=== PATIENT | female | born 1970 | race Caucasian/White ===

== ENCOUNTER 2019-01-07 20:34 | Emergency (ER) | payer OTHER ==
[2019-01-07] MEDS: HYDROCODONE/APAP (5/325) TAB PO (21:50)
[2019-01-07] MEDS: KETOROLAC 60 MG INJ IM (21:52)
== END 2019-01-07 23:30 | disposition home or self-care (01) ==
LOC: FTE 20:34
DX: M25.561 Pain in right knee (principal); M25.562 Pain in left knee
CPT/HCPCS: 73564; 73564-50; 81025; 99284-25